=== PATIENT | male | born 1965 | race Caucasian/White ===

== ENCOUNTER → 2022-01-10 10:43 | Outpatient (BNVA) | payer OTHER, SELFPAY | PROVIDERS: Visit Provider Internal Medicine Cardiovascular Disease | DX: I21.19 ST elevation (STEMI) myocardial infarction involving other coronary artery of inferior wall (principal); Z79.82 Long term (current) use of aspirin; Z98.61 Coronary angioplasty status | CPT/HCPCS: 99212 ==

== ENCOUNTER → 2022-05-12 13:26 | Outpatient (BNVA) | payer OTHER, SELFPAY | PROVIDERS: Visit Provider Internal Medicine Cardiovascular Disease | DX: R07.9 Chest pain, unspecified (principal); Z98.61 Coronary angioplasty status; Z98.890 Other specified postprocedural states | CPT/HCPCS: 93005; 99212 ==

== ENCOUNTER → 2022-06-06 10:55 | Outpatient (REF) | payer OTHER, SELFPAY ==
--- NOTE | 2022-06-06 11:04 | CA_ITS ---
Acquisition Time: 2022-06-06 11:17:20 Total Exercise Time: 00:06:51 Test Indications: R07.9 Chest Pain Medications: See H Protocol: CARLTON Max HR: 122 BPM 73% of Pred: 166 BPM Max BP: 160/068 mmHG Max Work Load: 7.6 METS Exercise stress test with exercise 6 min 51 sec of Carlton protocol, achieving 73% MPHR, with mild sob and he jumped off of treadmill, denied chest discomfort, without arrythmia, with normotensive response to exercise, with nondiagnostic EKG for ischemia due to suboptimal heart rate. Echo images obtained at rest and immediately post exercise. Definity contrast used. Test reviewed with Dr Schmitz. Referred By: Rj Schmitz Overread By: ADILSON PHOENIX
== END ==
LOC: HO.CARD 10:55
PROVIDERS: Visit Provider Internal Medicine Cardiovascular Disease
DX: R07.9 Chest pain, unspecified (principal)
CPT/HCPCS: 93350; Q9957

== ENCOUNTER → 2022-08-18 10:16 | Outpatient (BNVA) | payer SELFPAY | PROVIDERS: Visit Provider Physician Assistant Medical | DX: Z02.79 Encounter for issue of other medical certificate (principal) ==

== ENCOUNTER 2023-04-12 14:44 | Outpatient (AMB) | payer OTHER, SELFPAY ==
--- NOTE | 2023-04-12 14:50 | A.OFFVIS_ITS ---
Intake Vital Signs 04/12/23 14:51 Height 5 ft 5 in Weight 212 lb 15.465 oz BMI 35.4 BP 134/76 Blood Pressure Location Lt brachial Position Sitting Pulse 76 Intake Visit Reasons: pt no showed [id number] pt only wants KM Intake Note: follow up [employer] Manager Required: No Accompanied by: Self / Same As Patient Allergies No Known Drug Allergies Allergy (Unknown, Verified 04/12/23 14:52) none Medication List - Last Reconciled 04/12/23 by Rj Schmitz MD aspirin 81 mg PO DAILY atorvastatin 80 mg PO BEDTIME metformin 500 mg PO BID metoprolol succinate ER 75 mg (1.5 x 50 mg) PO DAILY ticagrelor (Brilinta) 90 mg PO BID HPI HPI Comments History of Present Illness Details Kat 57 gentleman is here for follow-up. He was seen at [facility] when he presented with inferior wall MT and was taken for cardiac catheterization revealing RCA plaque rupture which was treated with drug-eluting stent. He has residual disease in the LAD which is 30-40%. He is returning and is complaining of left-sided chest discomfort. This is different from his anginal discomfort in the past but he is very concerned about it and has been getting it quite frequently. He is quite anxious due to his chest discomfort. Taking his medication was regularly. 04/12/2023: He returns for follow-up. He has no chest pain or shortness of breath. Clinically stable. His main complaint is bruising over his arms. He had RCA PCI in November 2021. He is still on aspirin and Brilinta currently. [facility] Surgical History History of cardiac cath Family History Mother Asthma Father Pacemaker Brother Heart disease Social History Alcohol intake: never Patient Tobacco Use Status: Never used Tobacco service: No Current occupational status: employed Current occupation: Media Director Physical Exam Vital Signs: Last Vital Signs Pulse 76 04/12/23 14:51 BP 134/76 04/12/23 14:51 BMI result Body Mass Index 35.4 GENERAL APPEARANCE: in no acute distress, pleasant. NECK: no carotid bruit, no jugular venous distention. SKIN: no suspicious lesions, warm and dry. HEART: no murmurs, regular rate and rhythm. LUNGS: clear to auscultation bilaterally. ABDOMEN: soft, nontender. EXTREMITIES: no edema. PERIPHERAL PULSES: equal. NEUROLOGIC: No gross deficits, AAO X 3 Assessment & Plan Assessment & Plan (1) Stable angina: Code(s): I20.89 - Other forms of angina pectoris Plan 57 year gentleman is here for follow-up. He has known history of coronary disease with previous inferior STEMI for which she underwent primary PCI to right coronary artery. This was in November 2021. He is on aspirin and Brilinta currently. He is complaining of some bruising on his arms. We discussed about stopping Brilinta at this stage and he wishes to stop. Continue aspirin 81 mg lifelong. He should continue his atorvastatin 80 mg and metoprolol succinate 75 mg daily. Overall clinically stable. He will see us back in 4 months. Thank you for allowing me to participate in the care of your patient. Please feel free to contact me if you have any questions. Coding Level of Care Code Est Pt Level 4 (90299) Diagnoses Stable angina I20.89
[2023-04-12 14:51] VITALS: BP 134/76; PULSE 76; BMI 35.4
== END 2023-04-12 15:05 | disposition home or self-care (01) ==
PROVIDERS: Visit Provider Internal Medicine Cardiovascular Disease
DX: I20.89 Other forms of angina pectoris (principal)
CPT/HCPCS: 99214

== ENCOUNTER → 2023-04-12 14:44 | Outpatient (BNVA) | payer OTHER, SELFPAY | PROVIDERS: Visit Provider Internal Medicine Cardiovascular Disease | DX: I20.89 Other forms of angina pectoris (principal) | CPT/HCPCS: 99212 ==

== ENCOUNTER → 2023-08-18 10:34 | Outpatient (BNVA) | payer SELFPAY | PROVIDERS: Visit Provider Physician Assistant | DX: Z02.79 Encounter for issue of other medical certificate (principal) ==

== ENCOUNTER 2024-06-03 10:43 | Outpatient (AMB) | payer OTHER, SELFPAY ==
--- NOTE | 2024-06-03 11:00 | MHC.OFFVIS ---
Vital Signs 06/03/24 11:02 Height 5 ft 5 in Weight 218 lb 4.122 oz BMI 36.3 BP 134/76 Blood Pressure Location Lt brachial Position Sitting Pulse 68 Pulse Source Monitor Intake Visit Reasons: f/up r/s from [id number] Intake Note: f/up Clinical Case Manager Required: No Accompanied by: Self / Same As Patient Allergies No Known Drug Allergies Allergy (Unknown, Verified 04/12/23 14:52) none Medication List - Last Reconciled 06/03/24 by Rj Schmitz MD aspirin 81 mg PO DAILY atorvastatin 80 mg PO BEDTIME metformin 500 mg PO ONCE metoprolol succinate ER 75 mg (1.5 x 50 mg) PO DAILY HPI Comments Details: Kat Baker gentleman is here for follow-up. He was seen at [facility] when he presented with inferior wall TN and was taken for cardiac catheterization revealing RCA plaque rupture which was treated with drug-eluting stent. He has residual disease in the LAD which is 30-40%. He is returning and is complaining of left-sided chest discomfort. This is different from his anginal discomfort in the past but he is very concerned about it and has been getting it quite frequently. He is quite anxious due to his chest discomfort. Taking his medication was regularly. 04/12/2023: He returns for follow-up. He has no chest pain or shortness of breath. Clinically stable. His main complaint is bruising over his arms. He had RCA PCI in November 2021. He is still on aspirin and Brilinta currently. 06/03/2024: He is here for follow-up. On last visit we discussed about stopping Brilinta and he has been taking aspirin monotherapy since then. Blood pressure is well controlled. He has been on Trulicity and has been losing weight. He is saying he is going to start exercising soon. Denying any symptoms currently. [facility] History History of cardiac cath Family History Mother Asthma Father Pacemaker Brother Heart disease Social History Alcohol intake: never Patient Tobacco Use Status: Never used Tobacco service: No Current occupational status: employed Current occupation: Teacher Hearing Impaired Physical Exam Vital Signs: Last Vital Signs Pulse 68 06/03/24 11:02 BP 134/76 06/03/24 11:02 BMI result Body Mass Index 36.3 GENERAL APPEARANCE: in no acute distress, pleasant. NECK: no carotid bruit, no jugular venous distention. SKIN: no suspicious lesions, warm and dry. HEART: no murmurs, regular rate and rhythm. LUNGS: clear to auscultation bilaterally. ABDOMEN: soft, nontender. EXTREMITIES: no edema. PERIPHERAL PULSES: equal. NEUROLOGIC: No gross deficits, AAO X 3 Office Procedures EKG Details: Sinus rhythm 68 beats per minute, inferior infarct, nonspecific T-wave changes, QTC 431 milliseconds. [id number], Complete Assessment & Plan Assessment & Plan (1) Stable angina: Code(s): I20.89 - Other forms of angina pectoris Category: Medical (2) Hyperlipidemia: Code(s): E78.5 - Hyperlipidemia, unspecified Category: Medical Plan 58 year gentleman who is here for follow-up. He has known history of coronary disease with previous inferior wall TN and primary PCI to right coronary artery. He has done well since then. He has no exertional symptoms currently. He is losing weight we Trulicity and planning to start exercising regularly. Blood pressure is well controlled. He is on aspirin monotherapy currently. Tolerating it well. His last LDL cholesterol available to us is from 2021 when he actually had the ACS event and LDL was 182 at that time. He is saying he has had repeat blood workup at [place] which we do not have access to. I have advised him to get those results faxed to us through his primary care doctor. His LDL cholesterol should be less than 70 and ideally less than 55 (by guidelines) given his young age. He will see us back in 6 months. Thank you for allowing me to participate in the care of your patient. Please feel free to contact me if you have any questions. Coding Level of Care Code Est Pt Level 4 (85746) Diagnoses Stable angina I20.89 Hyperlipidemia E78.5 CPT Codes EKG - CPT: 74781-[id number], Complete ([id number])
[2024-06-03 11:02] VITALS: BP 134/76; PULSE 68; BMI 36.3
== END 2024-06-03 11:24 | disposition home or self-care (01) ==
PROVIDERS: Visit Provider Internal Medicine Cardiovascular Disease
DX: I20.89 Other forms of angina pectoris (principal); E78.5 Hyperlipidemia, unspecified
CPT/HCPCS: 93010; 99214

== ENCOUNTER → 2024-06-03 10:43 | Outpatient (BNVA) | payer OTHER, SELFPAY | PROVIDERS: Visit Provider Internal Medicine Cardiovascular Disease | DX: I20.89 Other forms of angina pectoris (principal); E78.5 Hyperlipidemia, unspecified; R94.31 Abnormal electrocardiogram [ECG] [EKG] | CPT/HCPCS: 93005; 99212 ==

== ENCOUNTER → 2024-08-16 10:24 | Outpatient (BNVA) | payer SELFPAY | PROVIDERS: Visit Provider Internal Medicine | DX: Z02.79 Encounter for issue of other medical certificate (principal) ==